=== PATIENT | female | born 1970 | race Caucasian/White ===

== ENCOUNTER 2019-09-15 11:16 | Outpatient (CLI) | payer SELFPAY ==
--- NOTE | 2019-09-15 11:26 | XR_ITS ---
WS: [id number] Left knee, 3 views, 09/15/2019 Clinical Data: L KNEE PAIN Comparison: None. Findings: No fractures or dislocations are seen. The joint spaces are normal. The patella is intact. The soft t issues are unremarkable. XR/XR knee LT 3V* [id number] Impression: Negative left knee.
== END 2019-09-15 11:17 | disposition home or self-care (01) ==
PROVIDERS: PCP Nurse Practitioner Family; Visit Provider Nurse Practitioner Family
DX: M25.562 Pain in left knee (principal)
CPT/HCPCS: 73562

== ENCOUNTER 2019-10-03 08:29 | Outpatient (RCR) | payer BC, SELFPAY | END 2019-10-24 23:59 | disposition home or self-care (01) | LOC: SPT 08:29 | PROVIDERS: PCP Nurse Practitioner Family; Referring Provider Orthopaedic Surgery; Visit Provider Orthopaedic Surgery | DX: M25.562 Pain in left knee (principal) | CPT/HCPCS: 97110; 97162 ==

== ENCOUNTER → 2020-01-04 11:52 | Outpatient (BNVA) | payer BC, SELFPAY | PROVIDERS: PCP Nurse Practitioner Family; Visit Provider Nurse Practitioner Family | DX: Z20.828 Contact with and (suspected) exposure to other viral communicable diseases (principal) | CPT/HCPCS: 87635 ==

== ENCOUNTER → 2020-02-28 08:46 | Outpatient (BNVA) | payer BC, SELFPAY | PROVIDERS: PCP Nurse Practitioner Family; Visit Provider Nurse Practitioner Family | DX: Z20.828 Contact with and (suspected) exposure to other viral communicable diseases (principal) | CPT/HCPCS: 87635 ==

== ENCOUNTER → 2020-03-26 10:36 | Outpatient (BNVA) | payer BC, SELFPAY | PROVIDERS: PCP Nurse Practitioner Family; Visit Provider Nurse Practitioner Family | DX: Z20.822 Contact with and (suspected) exposure to COVID-19 (principal) | CPT/HCPCS: 87635 ==

== ENCOUNTER → 2020-09-11 09:57 | Outpatient (BNVA) | payer BC, SELFPAY | PROVIDERS: PCP Nurse Practitioner Family; Visit Provider Nurse Practitioner Family | DX: Z20.828 Contact with and (suspected) exposure to other viral communicable diseases (principal) | CPT/HCPCS: 87635 ==

== ENCOUNTER → 2020-09-28 10:39 | Outpatient (BNVA) | payer BC, SELFPAY | PROVIDERS: PCP Nurse Practitioner Family; Visit Provider Nurse Practitioner Family | DX: Z20.828 Contact with and (suspected) exposure to other viral communicable diseases (principal) | CPT/HCPCS: 87635 ==

== ENCOUNTER → 2021-01-23 09:30 | Outpatient (BNVA) | payer BC, SELFPAY | PROVIDERS: PCP Nurse Practitioner Family; Visit Provider Nurse Practitioner Family | DX: Z20.822 Contact with and (suspected) exposure to COVID-19 (principal) | CPT/HCPCS: 87426; 87635 ==

== ENCOUNTER → 2021-02-22 12:05 | Outpatient (BNVA) | payer BC, SELFPAY | PROVIDERS: PCP Nurse Practitioner Family; Visit Provider Nurse Practitioner Family | DX: Z20.828 Contact with and (suspected) exposure to other viral communicable diseases (principal) | CPT/HCPCS: 87426; 87635 ==

== ENCOUNTER → 2022-02-15 14:00 | Outpatient (BNVA) | payer BC, SELFPAY | PROVIDERS: PCP Nurse Practitioner Family; Visit Provider Family Medicine | DX: R51.9 Headache, unspecified (principal); J01.90 Acute sinusitis, unspecified | CPT/HCPCS: 87071; 87400; 87880 ==

== ENCOUNTER 2024-06-17 10:20 | Outpatient (CLI) | payer OTHER, SELFPAY ==
--- NOTE | 2024-06-17 10:33 | XR_ITS ---
WS: [id number] Exam: [place] [id number] Date/Time of Exam: 06/17/2024 10:35 AM Reason For Exam: L ARM PAIN No fracture. Articular relationships are intact. Normal soft tissues. Probable bone island in the humeral head of no clinical significance. XR/[place] [id number] IMPRESSION: 1. Negative LEFT humerus.
--- NOTE | 2024-06-17 10:33 | XR_ITS ---
WS: [id number] Exam: XR shoulder LT min 2V* [id number] Date/Time of Exam: 06/17/2024 10:35 AM Reason For Exam: SHOULDER PAIN No fracture. The joints are maintained. Normal soft tissues. Bone island in the humeral head. XR/XR shoulder LT min 2V* [id number] IMPRESSION: 1. Negative LEFT shoulder.
== END 2024-06-17 10:21 | disposition home or self-care (01) ==
PROVIDERS: PCP Nurse Practitioner Family; Visit Provider Nurse Practitioner Family
DX: M79.602 Pain in left arm (principal); M25.512 Pain in left shoulder; R93.7 Abnormal findings on diagnostic imaging of other parts of musculoskeletal system
CPT/HCPCS: 73030; 73060

== ENCOUNTER 2024-08-08 12:58 | Outpatient (CLI) | payer OTHER, SELFPAY ==
--- NOTE | 2024-08-08 13:00 | MR_ITS ---
WS: [id number] MRI LEFT SHOULDER HISTORY: M25.512 - Pain in left shoulder COMPARISON: None available. TECHNIQUE: Multiplanar sequences of the shoulder joint are submitted. Mild AC joint arthritis. Hypertrophic osteophytes of the distal clavicle with mild encroachment upon the myotendinous portion of the supraspinatus. AC joint is narrowed. Small amount of edema in the distal clavicle. There is a small amount of fluid in the subacromial subdeltoid bursa. No os acromion. Biceps tendon remains in the bicipital groove. Low signal nodular measuring 6 mm associated with the biceps tendon. No rotator cuff muscle atrophy or edema. Oblique tear in the posterior supraspinatus tendon extends to the inferior articular surface. Tear extends through approximately 50% of the tendon. No additional tendon tear. There is thickening and increased T2 in the axillary pouch. There is edema and loss of the normal morphology of the inferior glenohumeral ligament. There is abnormal signal continuous from the inferior glenohumeral ligament to the inferior labrum and joint capsule. Suspect avulsion of the humeral head cortex at the site of the inferior glenohumeral ligament insertion. Mild intermediate signal in the superior labrum. No definite tear identified. 3.6 mm low signal body in the subscapularis recess. MR/MR shoulder LT wo con* [id number] IMPRESSION: 1. Torn inferior glenohumeral ligament with associated avulsion suspected of t he humeral head cortex. Tear extends to involve the anterior labrum. 2. Increased T2 signal in the axillary pouch may be related to the recent inju ry or adhesive capsulitis. 3. Distal supraspinatus tendon tear involves the articular surface, 50% width of the tear. 4. Mild AC joint arthritis. 5. Calcific tendinitis associated with the biceps tendon. 6. Additional 3.6 mm low signal intra-articular body in the subscapularis rece ss fluid.
== END 2024-08-08 12:59 | disposition home or self-care (01) ==
LOC: RAD 12:58
PROVIDERS: PCP Nurse Practitioner Family; Visit Provider Specialist
DX: M75.112 Incomplete rotator cuff tear or rupture of left shoulder, not specified as traumatic (principal); M19.012 Primary osteoarthritis, left shoulder; M75.02 Adhesive capsulitis of left shoulder; M75.31 Calcific tendinitis of right shoulder; S43.492A Other sprain of left shoulder joint, initial encounter; G89.29 Other chronic pain; X58.XXXA Exposure to other specified factors, initial encounter
CPT/HCPCS: 73221

== ENCOUNTER → 2024-12-01 10:38 | Outpatient (BNVA) | payer OTHER, SELFPAY | PROVIDERS: PCP Nurse Practitioner Family | DX: J02.9 Acute pharyngitis, unspecified (principal) | CPT/HCPCS: 87071; 87880 ==